=== PATIENT | male | born 1980 | race Caucasian/White ===

== ENCOUNTER 2025-01-23 18:19 | Emergency (ER) | payer BC ==
[~2025-01-23] VITALS: Ht 188 cm; Wt 108.9 kg
[2025-01-23 18:33] VITALS: TEMP 98.6
[2025-01-23 18:41] LABS: BASOPHILS % 0.2 % (0.0-1.0); EOSINOPHILS % 0.2 % (0.0-6.0); HEMATOCRIT 41.7 % (38.2-49.6); HEMOGLOBIN 14.2 g/dL (14.0-18.0); LYMPHOCYTES % 10.4 % (18.0-39.1); MEAN CORPUSCULAR HEMOGLOBIN 31.4 pg (28-32); MEAN CORPUSCULAR HGB CONC 34.1 g/dL (31-35); MEAN CORPUSCULAR VOLUME 92.3 fL (81-99); MONOCYTES # (AUTO) 0.6 (0.2-0.8); MONOCYTES % 6.1 % (4.4-11.3); NEUTROPHILS % 82.7 % (38.7-80.0); PLATELET COUNT 346 x10e3/uL (140-360); RED BLOOD COUNT 4.52 x10e6/uL (4.3-5.7); RED CELL DISTRIBUTION WIDTH 12.5 % (11.7-14.4); WHITE BLOOD COUNT 9.63 x10e3/uL (4.8-10.8)
[2025-01-23] MEDS ORDERED: IOPAMIDOL 370 MG/ML 100 ML INFUS..BTL INJ ONE (18:41)
[2025-01-23 18:54] LABS: INR 0.93
[2025-01-23 19:04] LABS: ALANINE AMINOTRANSFERASE 19 IU/L (0-55); ALBUMIN 4.6 g/dL (3.5-5.0); ALBUMIN/GLOBULIN RATIO 1.4 (0.8-2.0); ALKALINE PHOSPHATASE 86 IU/L (40-150); ANION GAP 15.9 mmol/L (8-16); BILIRUBIN,TOTAL 0.4 mg/dL (0.2-1.2); BLOOD UREA NITROGEN 13 mg/dL (7-26); BUN/CREATININE RATIO 10 (6-25); CALCIUM 9.8 mg/dL (8.4-10.2); CARBON DIOXIDE 23 mmol/L (22-29); CHLORIDE 106 mmol/L (98-107); CREATINE KINASE 160 IU/L (30-200); CREATININE, SERUM 1.31 mg/dL (0.72-1.25); EST GLOMERULAR FILTRATION RATE 68 ML/MIN (>=60); GLUCOSE 102 mg/dL (74-118); LIPASE 32 U/L (8-78); POTASSIUM 3.9 mmol/L (3.5-5.1); SODIUM 141 mmol/L (136-145)
[2025-01-23 19:13] LABS: TROPONIN I < 0.001 ng/mL (0-0.300)
[2025-01-23] MEDS: ACETAMINOPHEN 325 MG TAB PO STA (20:22)
[2025-01-23] MEDS: SODIUM CHLORIDE 0.9% 1000ML 1,000 ML IV STA (20:22)
[2025-01-23 20:58] VITALS: PULSE 64; RESP 17; O2SAT 100
[2025-01-23 21:06] VITALS: BP 130/78
[2025-01-23] MEDS: HYDRALAZINE HCL 20 MG/ML VIAL IV STA (21:06)
== END 2025-01-23 21:07 | disposition home or self-care (01) ==
LOC: ER 18:28
DX: S06.0X0A Concussion without loss of consciousness, initial encounter (principal); V43.52XA Car driver injured in collision with other type car in traffic accident, initial encounter; Y92.488 Other paved roadways as the place of occurrence of the external cause
CPT/HCPCS: 36415; 70496; 70498; 71045; 80053; 82550; 83690; 83880; 84484; 85025; 85610; 93005; 99284; J0360; J7030; Q9967